=== PATIENT | female | born 1975 | race American Indian/Alaskan Native ===

== ENCOUNTER 2018-11-21 06:34 | Emergency (ER) | payer OTHER ==
[2018-11-21] MEDS ORDERED: PROVENTIL IH ONE ×2 (06:46→07:34)
--- NOTE | 2018-11-21 07:30 | Emergency Department Report ---
ED Shortness of Breath HPI - General Chief Complaint: Dyspnea/Respdistress Stated Complaint: SHORTNESS OF BREATH Time Seen by Provider: 11/21/18 07:26 Source: patient Mode of arrival: Ambulatory Limitations: No Limitations - History of Present Illness Initial Comments: Patient is a 43-year-old female who comes to the ER with shortness of breath and tightness in her chest for 2 days. There are no associated complaints such as nausea or dizziness or radiation of the pain. Patient is obese and smokes cigarettes. She has no hypertension no hyperlipidemia no family history of coronary disease. She is otherwise healthy on no home medications. On arrival patient's vital signs are normal she has sinus rhythm without ST changes on 12- lead EKG. And she is wheezing bilaterally. She denies sputum and denies fever. She denies previous seasonal allergies and denies previous asthma. -: days(s) Improves With: nothing Worsens With: nothing Treatments Prior to Arrival: none - Related Data Home Oxygen Therapy: No Previous Rx's Medication Instructions Recorded Last Taken Type Albuterol Sulfate [Ventolin HFA] 2 puff IH Q4H PRN #1 hfa.aer.ad 11/21/18 Unknown Rx Cetirizine HCl [ZyrTEC] 10 mg PO DAILY #30 capsule 11/21/18 Unknown Rx Fluticasone [Flonase] 1 spray NS QDAY #1 bottle 11/21/18 Unknown Rx predniSONE [Deltasone] 20 mg PO DAILY #5 tablet 11/21/18 Unknown Rx Allergies Allergy/AdvReac Type Severity Reaction Status Date / Time No Known Allergies Allergy Verified 11/21/18 09:58 ED Review of Systems ROS: Stated complaint: SHORTNESS OF BREATH Other details as noted in HPI Comment: All other systems reviewed and negative Constitutional: denies: chills, fever Eyes: denies: eye pain ENT: denies: ear pain, throat pain Respiratory: see HPI, shortness of breath Cardiovascular: as per HPI, chest pain Endocrine: denies: flushing Gastrointestinal: denies: abdominal pain Genitourinary: denies: urgency Musculoskeletal: denies: back pain Skin: denies: rash Neurological: denies: headache Psychiatric: denies: anxiety Hematological/Lymphatic: denies: easy bleeding ED Past Medical Hx - Past Medical History Previous Medical History?: Yes Additional medical history: Obesity - Surgical History Past Surgical History?: Yes Additional Surgical History: - Family History Family history: no significant - Social History Smoking Status: Current Every Day Smoker Substance Use Type: None - Medications Home Medications: Home Medications Medication Instructions Recorded Confirmed Last Taken Type Albuterol Sulfate [Ventolin HFA] 2 puff IH Q4H PRN #1 hfa.aer.ad 11/21/18 Unknown Rx Cetirizine HCl [ZyrTEC] 10 mg PO DAILY #30 capsule 11/21/18 Unknown Rx Fluticasone [Flonase] 1 spray NS QDAY #1 bottle 11/21/18 Unknown Rx predniSONE [Deltasone] 20 mg PO DAILY #5 tablet 11/21/18 Unknown Rx ED Physical Exam - General Limitations: No Limitations General appearance: alert, in no apparent distress - Head Head exam: Present: atraumatic, normocephalic - Eye Eye exam: Present: normal appearance, PERRL, EOMI - ENT ENT exam: Present: mucous membranes moist - Neck Neck exam: Present: normal inspection, full ROM - Respiratory Respiratory exam: Present: normal lung sounds bilaterally, wheezes. Absent: respiratory distress, rales, rhonchi, stridor, chest wall tenderness, accessory muscle use, decreased breath sounds, prolonged expiratory - Cardiovascular Cardiovascular Exam: Present: regular rate - GI/Abdominal GI/Abdominal exam: Present: soft - Rectal Rectal exam: Present: deferred - Extremities Exam Extremities exam: Present: normal inspection, full ROM - Back Exam Back exam: Present: normal inspection, full ROM - Neurological Exam Neurological exam: Present: alert, oriented X3 - Psychiatric Psychiatric exam: Present: normal affect, normal mood - Skin Skin exam: Present: warm, dry, intact ED Course Vital Signs 11/21/18 06:38 Temperature 98.1 F Pulse Rate 85 Respiratory 18 Rate Blood Pressure 121/69 O2 Sat by Pulse 94 Oximetry ED Medical Decision Making - Lab Data Result diagrams: 11/21/18 07:41 11/21/18 07:41 - EKG Data -: EKG Interpreted by Me EKG shows normal: sinus rhythm Rate: normal - EKG Data When compared to previous EKG there are: no significant change Interpretation: no acute changes - Radiology Data Radiology results: report reviewed, image reviewed - Medical Decision Making Vital Signs 11/21/18 06:38 Temperature 98.1 F Pulse Rate 85 Respiratory 18 Rate Blood Pressure 121/69 O2 Sat by Pulse 94 Oximetry Labs 11/21/18 11/21/18 11/21/18 07:41 07:41 08:33 WBC 8.7 RBC 4.14 Hgb 12.0 Hct 35.9 MCV 87 MCH 29 MCHC 33 RDW 13.8 Plt Count 286 Sodium 140 Potassium 4.5 Chloride 102.8 Carbon Dioxide 27 Anion Gap 15 BUN 12 Creatinine 0.8 Estimated GFR > 60 BUN/Creatinine Ratio 15 Glucose 141 H Calcium 9.0 Total Bilirubin < 0.20 AST 18 ALT 15 Alkaline Phosphatase 75 Total Protein 6.6 Albumin 3.9 Albumin/Globulin Ratio 1.4 Urine Color Yellow Urine Turbidity Clear Urine pH 5.0 Ur Specific Cruger 1.027 Urine Protein <15 mg/dl Urine Glucose (UA) Neg Urine Ketones Tr Urine Blood Sm Urine Nitrite Neg Ur Reducing Substances Not Reportable Urine Bilirubin Neg Urine Ictotest Not Reportable Urine Urobilinogen < 2.0 Ur Leukocyte Esterase Neg Urine WBC (Auto) 1.0 Urine RBC (Auto) 14.0 U Epithel Cells (Auto) 3.0 Urine Mucus Few Urine HCG, Qual Negative pt had received albuterol in triage. on arrival to fast track still with bilateral wheezing duoneb given improved wheezing but still significant Mg 2gm IV given with improvement pt reports feeling better after the MG labs noted xray noted 12 lead noted no fever no sputum discussed findings with pt and family will dc home with la plan of care Critical care attestation.: If time is entered above; I have spent that time in minutes in the direct care of this critically ill patient, excluding procedure time. ED Disposition Clinical Impression: Reactive airway disease, Seasonal allergies Disposition: DC-01 TO HOME OR SELFCARE Is pt being admited?: No Does the pt Need Aspirin: No Condition: Stable Instructions: Reactive Airways Disease (ED) Additional Instructions: MEDS ORDERED FOLLOW UP INSTRUCTED REFERRAL BELOW DIET AND ACTIVITY TOLERATED HYDRATE WELL WITH WATER Prescriptions: predniSONE [Deltasone] 20 mg PO DAILY #5 tablet Fluticasone [Flonase] 1 spray NS QDAY #1 bottle Albuterol Sulfate [Ventolin HFA] 2 puff IH Q4H PRN #1 hfa.aer.ad PRN Reason: Shortness Of Breath Cetirizine HCl [ZyrTEC] 10 mg PO DAILY #30 capsule Referrals: [facility] [Other] - 3-5 Days Time of Disposition: 09:47
[2018-11-21] MEDS ORDERED: SOLU-Medrol IV ONE (07:34)
[2018-11-21 07:59] LABS: Hematocrit 35.9 % (30.3-42.9); Mean Corpuscular HGB Conc 33 % (30-34); Mean Corpuscular Volume 87 fl (79-97); Platelet Count 286 K/mm3 (140-440); Red Blood Count 4.14 M/mm3 (3.65-5.03); Red Cell Distribution Width 13.8 % (13.2-15.2)
[2018-11-21 09:10] LABS: Alanine Aminotransferase 15 units/L (7-56); Albumin 3.9 g/dL (3.9-5); BUN/Creatinine Ratio 15; Blood Urea Nitrogen 12 mg/dL (7-17); Hemolysis Index 16
--- NOTE | 2018-11-21 09:10 | XRay Report ---
ROUTINE CHEST, TWO VIEWS: SOB. PA and lateral views demonstrate the heart and mediastinal contour to be of normal size and shape. The lungs are clear and fully expanded and the soft tissues and bony structures are normal. IMPRESSION: Normal study.
[2018-11-21] MEDS ORDERED: MAGNESIUM SULFATE 2GM/50ML 2 GM/50 ML BAG IV ONE (09:11)
[2018-11-21 09:18] LABS: Bilirubin,Urine NEG (Negative); Blood,Urine SM (Negative); Color,Urine Yellow (Yellow); HCG Qualitative,Urine Negative (Negative); Mucus,Urine FEW /HPF; Protein,Urine <15 mg/dL mg/dL (Negative); Urobilinogen,Urine < 2.0 mg/dL (<2.0)
[2018-11-21 10:08] VITALS: BP 112/54
== END 2018-11-21 10:09 | disposition home or self-care (01) ==
LOC: ED 06:34
DX: J45.909 Unspecified asthma, uncomplicated (principal); J30.2 Other seasonal allergic rhinitis; F17.200 Nicotine dependence, unspecified, uncomplicated
CPT/HCPCS: 36415; 71046; 80053; 81001; 81025; 85027; 93005; 93010; 94640; 96365; 96375; 99284; J2930; J3475